=== PATIENT | male | born 1945 | race Caucasian/White ===

== ENCOUNTER 2016-08-30 18:39 | Observation (INO) | payer BC ==
[2016-08-30] MEDS ORDERED: DIPHENHYDRAMINE 50 MG/ML VIAL ONE (21:20)
[2016-08-30] MEDS ORDERED: ONDANSETRON 4 MG VIAL ONE (21:21)
[2016-08-30] MEDS ORDERED: KETOROLAC 30 MG/ML VIAL ONE (21:21)
[2016-08-30] MEDS ORDERED: OPTIRAY 350 100 ML VIAL HMH IV ONE (21:53)
[2016-08-30] MEDS ORDERED: GLUCAGON 1 MG VIAL IM PRN (22:20)
[2016-08-30] MEDS ORDERED: DEXTROSE 50% SYRINGE 50 ML IV PRN (22:20)
[2016-08-30] MEDS ORDERED: ACETAMINOPHEN 325 MG TAB PO PRN (22:20)
[2016-08-30] MEDS ORDERED: SALINE FLUSH 10 ML FLUSH PRN (22:20)
[2016-08-30] MEDS ORDERED: Atorvastatin 20 MG TAB PO SCH (22:59)
[2016-08-30 23:50] VITALS: BP_SYST 170; BP_SYST 172; RESP 20; TEMP 98.7; Wt 96.1 kg
[2016-08-31 03:32] VITALS: BP_SYST 148; RESP 18; TEMP 98.4
[2016-08-31] MEDS ORDERED: SODIUM CHLORIDE 0.9% FLUSH BAG 500 ML IV SCH (06:00)
[2016-08-31] MEDS ORDERED: LEVOTHYROXINE 0.05 MG TAB PO SCH (07:00)
[2016-08-31 07:55] VITALS: BP_SYST 127; RESP 18; TEMP 98.1
[2016-08-31] MEDS ORDERED: SALINE FLUSH 10 ML FLUSH SCH (08:00)
[2016-08-31] MEDS ORDERED: LISINOPRIL 20 MG TAB PO SCH (09:00)
[2016-08-31] MEDS ORDERED: Aspirin 325 MG TAB PO SCH (09:00)
[2016-08-31] MEDS ORDERED: ASPIRIN EC 81 MG TAB PO SCH (09:00)
[2016-08-31] MEDS ORDERED: CLOPIDOGREL 75 MG TAB PO SCH (10:50)
[2016-08-31 11:55] VITALS: BP_SYST 138; RESP 20; TEMP 98.2
[2016-08-31 13:45] VITALS: BP_SYST 138; RESP 20; TEMP 98.2
== END 2016-08-31 12:46 | disposition home or self-care (01) ==
LOC: ENRESERV → ENRESERVDT → ENRESERVTM → ER 18:39 → EMR 21:52 → ENPENDDIS 21:52 → PCU 23:59
PROVIDERS: ADMIT Internal Medicine; ATTEND Internal Medicine
CPT/HCPCS: 36415 ×2; 70450 ×2; 70496 ×2; 70498 ×2; 70544 ×2; 70548 ×2; 70553 ×2; 80048 ×2; 80053 ×2; 80061 ×2; 81001 ×2; 81241 ×2; 82378 ×2; 82947 ×2; 83036 ×2; 83090 ×2; 83690 ×2; 84439 ×2; 84443 ×2; 85025 ×2; 85300 ×2; 85303 ×2; 85306 ×2; 85610 ×2; 85613 ×2; 85730 ×2; 85732 ×2; 86038 ×2; 86141 ×2; 86147 ×2; 93306 ×2; 95819 ×2; 96374 ×2; 96375 ×2; 97799; 99239; 99284; G0378; J1644; J1885; J2405; Q9967